=== PATIENT | female | born 1990 | race Caucasian/White ===

== ENCOUNTER 2017-10-04 21:34 | Emergency (ER) | payer OTHER ==
--- NOTE | 2017-10-04 22:16 | RAD ---
LEFT FOOT THREE VIEWS: 10/04/17 HISTORY: Foot injury. There is no signs of fracture or dislocation. Small spur at the plantar fascia is noted. IMPRESSION: No acute findings. POS: [facility]
[2017-10-04] MEDS ORDERED: Ibuprofen 800 MG TAB ONE (22:30)
[2017-10-04] MEDS ORDERED: HYDROcodone/Acetaminophen 10/325 mg Tablet ONE (22:30)
== END 2017-10-04 22:47 | disposition home or self-care (01) ==
LOC: MADERS 21:34
DX: S90.32XA Contusion of left foot, initial encounter (principal); F32.9 Major depressive disorder, single episode, unspecified; X50.1XXA Overexertion from prolonged static or awkward postures, initial encounter

== ENCOUNTER 2018-07-30 19:18 | Emergency (ER) | payer OTHER, SELFPAY ==
[~2018-07-30 19:18] MED LIST: Sodium Chloride Irrig Solution 250 ML BOT ONE
[2018-07-30] MEDS ORDERED: Adacel (T-DAP) 0.5 ML SYRINGE ONE (19:26)
[2018-07-30] MEDS ORDERED: Lidocaine 1% 20 ML MDV ONE (19:39)
[2018-07-30] MEDS ORDERED: Triple Antibiotic Oint 1 GM Packet ONE (20:01)
== END 2018-07-30 20:09 | disposition home or self-care (01) ==
LOC: MADERS 19:18
DX: S61.411A Laceration without foreign body of right hand, initial encounter (principal); F32.9 Major depressive disorder, single episode, unspecified; W26.0XXA Contact with knife, initial encounter
CPT/HCPCS: 12002; 90715; J2001

== ENCOUNTER 2020-11-11 11:14 | Emergency (ER) | payer SELFPAY | END 2020-11-11 11:59 | disposition home or self-care (01) | LOC: MADERS 11:14 | DX: S39.012A Strain of muscle, fascia and tendon of lower back, initial encounter (principal); S70.01XA Contusion of right hip, initial encounter; S70.11XA Contusion of right thigh, initial encounter; W10.9XXA Fall (on) (from) unspecified stairs and steps, initial encounter | CPT/HCPCS: 99283 ==

== ENCOUNTER 2021-07-22 12:13 | Emergency (ER) | payer SELFPAY | END 2021-07-22 13:10 | disposition left against medical advice (07) | LOC: MADERS 12:13 | DX: Z53.21 Procedure and treatment not carried out due to patient leaving prior to being seen by health care provider (principal) ==

== ENCOUNTER 2021-11-19 05:50 | Emergency (ER) | payer SELFPAY ==
[2021-11-19] MEDS ORDERED: Pantoprazole 40 MG VIAL ONE (06:47)
[2021-11-19] MEDS ORDERED: Sodium Chloride 0.9% 1,000 ML ONE (06:47)
[2021-11-19] MEDS ORDERED: Ondansetron PF 4 MG/2 ML Vial ONE (06:47)
[2021-11-19 06:53] LABS: #Basophils 0.1 thou/uL (0.0-0.2); #Eosinphils 0.1 thou/uL (0.0-0.7); #Lymphocytes 1.9 thou/uL (1.20-3.40); #Monocytes 0.6 thou/uL (0.11-0.59); #Neutrophils 8.6 thou/uL (1.40-6.50); %Basophils 0.7 % (0.0-1.0); %Eosinophils 1.3 % (0.0-10.0); Hemoglobin 12.8 g/dL (12.0-16.0); Mean Corpuscular Hemoglobin 27.8 pg (27.0-31.0); Mean Corpuscular Volume 84.3 fL (78.0-98.0); Mean Platelet Volume 10.5 fL (7.4-10.4); Platelet Count 208 thou/uL (130-400); RBC Distribution Width 12.5 % (11.5-14.5); Red Blood Cell (RBC) Count 4.61 mill/uL (4.20-5.40); White Blood Cell (WBC) Count 11.3 thou/uL (4.8-10.8)
[2021-11-19 07:03] LABS: BHCG - Serum Negative (NEGATIVE); Pregs Control Background? CLEAR/WHITE (CLR/WHITE); Pregs Control Bar Appear? YES (CONTROL BAR)
[2021-11-19 07:14] LABS: ALT (SGPT) 22 U/L (8-55); AST (SGOT) 13 U/L (5-34); Albumin 3.8 g/dL (3.5-5.0); Alkaline Phosphatase 40 U/L (40-110); Anion Gap 14 mmol/L (10-20); BUN (Urea Nitrogen) 11 mg/dL (7.0-18.7); Bilirubin, Total 0.2 mg/dL (0.2-1.2); CK (CPK) 67 U/L (29-168); CRP (Inflammatory) Less than 0.50 mg/dL (= or < 0.5); Calc. Creatinine Clearance 0 mL/min (70-130); Carbon Dioxide 25 mmol/L (22-29); Chloride 107 mmol/L (98-107); Globulin 2.1 g/dL (2.4-3.5); Glucose 136 mg/dL (70-105); Potassium 4.2 mmol/L (3.5-5.1); Protein, Total 5.9 g/dL (6.0-8.3); Sodium 142 mmol/L (136-145)
[2021-11-19 07:45] LABS: Bilirubin Negative (Negative); Blood, Urine Negative (Negative); Clarity Slightly Cloudy (Clear); Glucose, Urine (Dipstick) Negative (Negative); Ketone, Urine Negative (Negative); Leukocyte Trace (Negative); Nitrite Negative (Negative); Protein, Urine (Dipstick) Negative (Neg-Trace); Urobilinogen 0.2 mg/dL (Less than 2)
[2021-11-19 07:50] LABS: Bacteria/HPF 1+ HPF (None Seen); RBC/HPF 0-3 HPF (0-3); Squamous Epithelial 0-3 HPF (0-3); WBC/HPF 0-3 HPF (0-3)
== END 2021-11-19 09:03 | disposition home or self-care (01) ==
LOC: MADERS 05:50
DX: R10.11 Right upper quadrant pain (principal)
CPT/HCPCS: 74176; 80053; 81003; 81015; 82150; 82550; 83690; 84484; 84703; 85025; 86140; 93005; 96361; 96374; 96375; C9113; J2405; J7050

== ENCOUNTER 2022-08-02 15:16 | Emergency (ER) | payer SELFPAY ==
[2022-08-02 18:46] LABS: Bilirubin Negative (Negative); Blood, Urine Trace (Negative); Clarity Clear (Clear); Glucose, Urine (Dipstick) Negative (Negative); Ketone, Urine Trace mg/dL (Negative); Leukocyte Trace (Negative); Nitrite Negative (Negative); Pregnancy Test - Urine (BHCG) Negative (Negative); Pregu Control Background? CLEAR/WHITE (CLR/WHITE); Pregu Control Bar Appear? YES (CONTROL BAR); Protein, Urine (Dipstick) Negative (Neg-Trace); Specific Gravity 1.027 (1.002-1.036); Specific Gravity, Urine 1.027 (1.002-1.036); Urobilinogen 0.2 mg/dL (Less than 2)
[2022-08-02 18:48] LABS: Bacteria/HPF Rare-Few HPF (None Seen); Mucous/LPF 1+ LPF (<2+); RBC/HPF 0-3 HPF (0-3)
[2022-08-02] MEDS ORDERED: metroNIDAZOLE 250 MG TAB ONE (19:02)
[2022-08-02] MEDS ORDERED: cefTRIAXone\\ROCEPHIN 1 GM VIAL ONE (19:02)
[2022-08-02] MEDS ORDERED: Doxycycline 100 MG CAP ONE (19:02)
[2022-08-02] MEDS ORDERED: Sterile Water 10 ML ONE (19:05)
[2022-08-04 13:02] LABS: Chlamydia by PCR Not Detected (NotDetected); GC by PCR Not Detected (NotDetected)
== END 2022-08-02 19:29 | disposition home or self-care (01) ==
LOC: MADERS 15:16
DX: N72 Inflammatory disease of cervix uteri (principal); J45.909 Unspecified asthma, uncomplicated
CPT/HCPCS: 81003; 81015; 81025; 87480; 87491; 87510; 87591; 87660; 96372; 99284; J0696